=== PATIENT | female | born 1975 | race Caucasian/White ===

== ENCOUNTER → 2017-01-17 | Outpatient (CLI) | payer BC ==
--- NOTE | 2017-01-17 08:44 | US ---
EXAMINATION TYPE: US pelvic complete DATE OF EXAM: 01/17/2017 COMPARISON: Prior pelvic ultrasound July 22, 2015 CLINICAL HISTORY: N92.1 MENOMETRORRHAGIA. Symptoms x 6 months; TECHNIQUE: Transvaginal (TV) as patient 's bladder not full and chose to have TVUS instead of TA US. Date of LMP: 12/27/2016 EXAM MEASUREMENTS: Uterus: 9.9 x 5.7 x 5.3 cm Endometrial Stripe: 0.9 cm Right Ovary: 3.9 x 1.7 x 1.8 cm Left Ovary: 4.3 x 2.0 x 1.9 cm 1. Uterus: Anteverted; multiple Nabothian cysts noted in cervix with largest = 1.5 x 1.5 x 1.0cm; mu ltiple nodular areas in right myometrium with largest discreet oval mass with peripheral color flow = 1.4 x 1.3 x 0.9cm (? uterine fibroid); cystic structure in upper myometrium = 0.6 x 0.4 x 0.5cm 2. Endometrium: thickness is wnl for day 22LMP 3. Right Ovary: multiple small follicles and solitary solid oval area = 1.6 x 1.4 x 1.5cm 4. Left Ovary: multiple small follicles color flow imaging shows vascular patency within the ovaries; there is no evidence for ovarian torsio n. 5. Bilateral Adnexa: wnl 6. Posterior cul-de-sac: small amount of free fluid is present = 3.9 x 3.0 x 0.6cm x 0.523 = 0.4ml (wnl as is <10ml) Uterus is heterogeneous in appearance. Multiple nabothian cysts are seen in the cervix measuring up t o 1.5 cm in size. In the anterior myometrium there is poorly defined heterogeneous hyperechoic area c ould reflect small fibroid. Endometrium measures 9 mm which is within normal limits for secretory pha se of menstrual cycle. Small moderate free fluid is seen in pelvic cul-de-sac. Both ovaries are identified. Small peripheral follicles are noted bilaterally. No suspicious adnexal masses are seen. IMPRESSION: Suspect small intrauterine fibroids. Consider pelvic MRI correlation which is more sensit que to further evaluate.
[2017-01-17 10:13] LABS: Follicle Stimulating Hormone 1.5 mIU/mL; Prolactin 28.3 ng/mL (3.0-18.6)
== END | disposition home or self-care (01) ==
LOC: RADUSWWP 07:02
PROVIDERS: ATTEND Obstetrics & Gynecology
DX: N92.1 Excessive and frequent menstruation with irregular cycle (principal)
CPT/HCPCS: 76830; 82670; 83001; 83002; 84146; 84443

== ENCOUNTER → 2017-03-21 | Outpatient (CLI) | payer BC ==
[2017-03-21 16:32] LABS: Basophils % (A) 1 %; CH 30.3; CHCM 33.3; Eosinophils % (A) 1 %; HCT 40.3 % (34.0-46.0); HDW 2.19; HGB 13.5 gm/dL (11.4-16.0); Luc # (Auto) 0.13; Luc % (Auto) 2; Lymphocytes # (A) 1.1 k/uL (1.0-4.8); Lymphocytes % (A) 18 %; MCH 30.5 pg (25.0-35.0); MCHC 33.4 g/dL (31.0-37.0); MCV 91.5 fL (80.0-100.0); Mean Platelet Volume 7.3; Monocytes # (A) 0.5 k/uL (0-1.0); Monocytes % (A) 8 %; Neutrophils # (A) 4.4 k/uL (1.3-7.7); Neutrophils % (A) 70 %; RBC 4.41 m/uL (3.80-5.40); RDW 12.8 % (11.5-15.5); WBC 6.2 k/uL (3.8-10.6); WBC (Perox) 6.48
== END | disposition home or self-care (01) ==
LOC: LABPAT 15:51
PROVIDERS: ATTEND Obstetrics & Gynecology
DX: Z01.812 Encounter for preprocedural laboratory examination (principal)
CPT/HCPCS: 36415; 85025

== ENCOUNTER 2017-03-23 09:51 | Day surgery (SDC) | payer BC ==
[2017-03-21 14:12] VITALS: BMI 28.4
--- NOTE | 2017-03-23 09:09 | P.HPOB ---
History of Present Illness H&P Date: 03/23/17 Chief Complaint: menorrhagia Maude is a 41-year-old female who has heavy vaginal bleeding. She was bleeding is worsened over the last 8-9 months amended began after a suction D&C for miscarriage approximately 18 months ago her bleeding has gotten significant have her and now she has often 13 days bleeding 9 days off and then returns to bleeding pattern. She's need iron transfusions for same. We did discuss multiple treatment options following an ultrasound that did not reveal any specific pathology she was offered control versus Mirena versus NovaSure she is opted for NovaSure ablation. She is scheduled for D&C with hysteroscopy NovaSure due to same this will also allow us to fully evaluate the lining of uterus and obtain a tissue sample. On physical exam vital signs are stable and afebrile. Heart regular, lungs clear, extremities without pain. Pelvic exam otherwise generally unremarkable. Assessment menorrhagia. Plan D&C with hysteroscopy and NovaSure. Past Medical History Past Medical History: Asthma, Hypertension Additional Past Medical History / Comment(s): seasonal asthma. HTN UNDER CONTROL NO MEDS. IRREGULAR MENSES History of Any Multi-Drug Resistant Organisms: None Reported Past Surgical History: Bariatric Surgery, Breast Surgery, Orthopedic Surgery Additional Past Surgical History / Comment(s): sleeve gastrectomy September 2013. RT BREAST LUMPECTOMY-BENIGN. RT KNEE SX. EGD. RT SHOULDER SX Past Anesthesia/Blood Transfusion Reactions: Motion Sickness, Postoperative Nausea & Vomiting (PONV) Smoking Status: Never smoker - Past Family History Mother Family Medical History: No Reported History Medications and Allergies Home Medications Medication Instructions Recorded Confirmed Type Ferrous Sulfate [Feosol] 325 mg PO TID 07/23/15 03/21/17 History Calcium Carbonate [Calcium] 600 mg PO DAILY 03/21/17 03/21/17 History Cyanocobalamin (Vitamin B-12) 1,000 mcg PO DAILY 03/21/17 03/21/17 History [Vitamin B-12] Allergies Allergy/AdvReac Type Severity Reaction Status Date / Time No Known Allergies Allergy Verified 03/21/17 11:20 Exam Osteopathic Statement: *. No significant issues noted on an osteopathic structural exam other than those noted in the History and Physical/Consult.
[~2017-03-23 09:51] MED LIST: DEXAMETHASONE SOD PHOSPHATE 10 MG/ML 1 ML VIAL IV ONE; LACTATED RINGERS 1,000 ML IV SCH; LIDOCAINE 1% 20 ML VIAL (10MG/ML) FOR IV START INTRADERMA PRN; ONDANSETRON 4 MG/2 ML VIAL IVP ONE; Pre Op ABX Message 1 EACH MISC MISCELLANE ONE; SCOPOLAMINE 1.5MG/72HR PATCH TRANSDERM ONE
[2017-03-23] MEDS ORDERED: KETOROLAC 30 MG/ML 1 ML VIAL ONE (10:33)
[2017-03-23] MEDS ORDERED: fentaNYL (PF) 50 MCG/ML 2 ML AMP ONE (10:33)
[2017-03-23] MEDS ORDERED: PROPOFOL 10 MG/ML 20 ML VIAL IV ONE (10:33)
[2017-03-23] MEDS ORDERED: MIDAZOLAM 2 MG/2 ML VIAL ONE (10:33)
[2017-03-23] MEDS ORDERED: LIDOCAINE 1% INJ 10MG/ML (20 ML MDV) ONE (10:33)
--- NOTE | 2017-03-23 11:04 | P.OP ---
Date of Procedure: 03/23/17 Preoperative Diagnosis: Menorrhagia Postoperative Diagnosis: Same Procedure(s) Performed: D&C with hysteroscopy and NovaSure Anesthesia: AMITA Surgeon: Rishabh Poe Pathology: other (Uterine curettings) Condition: stable Disposition: same day Operative Findings: Pathology pending Description of Procedure: Patient was taken to the operating suite where a general anesthetic was found be adequate. She was prepped and draped in the normal sterile fashion and placed in the dorsal lithotomy position. Initially a weighted speculum was inserted into the vagina and the anterior lip of the cervix was grasped with an Allis clamp. Cervix was then dilated and uterus sounded to 9 cm. Camera was then inserted no gross pathology was noted therefore camera was removed and sharp curettings were obtained. This tissue was collected and placed on Telfa paper. It was then sent to pathology. NovaSure system was then inserted with a length of 4-1/2 with the to have it was tested and passed its patency test. It was then enabled and burned for 1 minute and 59 seconds. At the conclusion of the burn camera was reinserted excellent burn is noted. All instruments were then removed sponge, lap, needle counts were all correct 2. Patient was then taken to the recovery room in stable and satisfactory condition. Plan - Discharge Summary New Discharge Prescriptions: New Ibuprofen [Motrin] 600 mg PO Q6HR PRN #30 tab PRN Reason: Pain No Action Ferrous Sulfate [Feosol] 325 mg PO TID Cyanocobalamin (Vitamin B-12) [Vitamin B-12] 1,000 mcg PO DAILY Calcium Carbonate [Calcium] 600 mg PO DAILY Discharge Medication List Ferrous Sulfate [Feosol] 325 mg PO TID 07/23/15 [History] Calcium Carbonate [Calcium] 600 mg PO DAILY 03/21/17 [History] Cyanocobalamin (Vitamin B-12) [Vitamin B-12] 1,000 mcg PO DAILY 03/21/17 [ History] Ibuprofen [Motrin] 600 mg PO Q6HR PRN #30 tab 03/23/17 [Rx] Follow up Appointment(s)/Referral(s): Rishabh Poe DO [Doctor of Osteopathic Medicine] - 2 Weeks Patient Instructions/Handouts: Scopolamine (Absorbed through the skin) Activity/Diet/Wound Care/Special Instructions: No heavy lifting, limit stairs and driving, and pelvic rest. If any high temperatures, heavy bleeding, or severe pain call my office
[2017-03-23 11:15] VITALS: TEMP 98.5
[2017-03-23] MEDS: HYDROmorphone 1 MG/ML 1 ML SYRINGE IVP PRN ×2 (11:19→11:24)
[2017-03-23 11:23] VITALS: RESP 16
[2017-03-23] MEDS ORDERED: IBUPROFEN 600 MG TAB PO STA (12:19)
[2017-03-23 12:22] VITALS: BP 165/94; PULSE 64
== END 2017-03-23 12:41 | disposition home or self-care (01) ==
LOC: OR 09:51
PROVIDERS: ATTEND Obstetrics & Gynecology
DX: N92.0 Excessive and frequent menstruation with regular cycle (principal); N92.6 Irregular menstruation, unspecified; J45.909 Unspecified asthma, uncomplicated; Z98.84 Bariatric surgery status
CPT/HCPCS: 81025; 88305; 58563; J2250; J1100; J2405; J2001; J3010; J1885; J1170; J2704

== ENCOUNTER 2017-12-07 10:01 | Observation (INO) | payer BC ==
--- NOTE | 2017-12-07 10:30 | ED ---
General Adult HPI - General Chief complaint: Chest Pain Stated complaint: Chest Pain, SOB, Leg Swelling Time Seen by Provider: 12/07/17 10:11 Source: patient, RN notes reviewed, old records reviewed Mode of arrival: wheelchair Limitations: no limitations - History of Present Illness Initial comments: 42-year-old female presents for evaluation of dyspnea and lower extremity swelling. Patient is generally healthy. She has had issues with hypertension during . She states that over the past 3 days she's had a chest heaviness and mild dyspnea. She also noted yesterday that her legs were very swollen. She states that for the past several weeks she has not felt well, she 's been fatigued. She is also had a.m. headaches for the past one week. She denies central chest pain. She did have a sharp pain across her bilateral upper chest several days ago. No current chest pain. Denies nausea vomiting or diarrhea. Denies dysuria. - Related Data Home Medications Medication Instructions Recorded Confirmed Acetaminophen Tab [Tylenol Tab] 650 mg PO Q4H PRN 12/07/17 12/07/17 Allergies Allergy/AdvReac Type Severity Reaction Status Date / Time No Known Allergies Allergy Verified 12/07/17 10:30 Review of Systems ROS Statement: Those systems with pertinent positive or pertinent negative responses have been documented in the HPI. ROS Other: All systems not noted in ROS Statement are negative. Past Medical History Past Medical History: Asthma, Hypertension Additional Past Medical History / Comment(s): seasonal asthma. HTN UNDER CONTROL NO MEDS. IRREGULAR MENSES History of Any Multi-Drug Resistant Organisms: None Reported Past Surgical History: Bariatric Surgery, Breast Surgery, Orthopedic Surgery Additional Past Surgical History / Comment(s): sleeve gastrectomy September 2013. RT BREAST LUMPECTOMY-BENIGN. RT KNEE SX. EGD. RT SHOULDER SX Past Anesthesia/Blood Transfusion Reactions: Motion Sickness, Postoperative Nausea & Vomiting (PONV) Past Psychological History: No Psychological Hx Reported Smoking Status: Never smoker Past Alcohol Use History: Occasional Past Drug Use History: None Reported - Past Family History Mother Family Medical History: No Reported History General Exam Limitations: no limitations General appearance: alert, in no apparent distress Head exam: Present: atraumatic, normocephalic Eye exam: Present: normal appearance, PERRL, EOMI ENT exam: Present: normal exam Neck exam: Present: normal inspection. Absent: tenderness, meningismus Respiratory exam: Present: normal lung sounds bilaterally. Absent: respiratory distress, wheezes, rales Cardiovascular Exam: Present: regular rate, normal rhythm. Absent: JVD GI/Abdominal exam: Present: soft. Absent: distended, tenderness Extremities exam: Present: pedal edema (trace) Neurological exam: Present: alert, oriented X3, CN II-XII intact. Absent: motor sensory deficit Psychiatric exam: Present: normal affect, normal mood Skin exam: Present: warm, dry, intact. Absent: cyanosis, diaphoretic Course Vital Signs 12/07/17 12/07/17 12/07/17 10:03 11:00 12:01 Temperature 97.8 F Pulse Rate 101 H 64 62 Respiratory 18 16 18 Rate Blood Pressure 184/126 175/103 179/108 O2 Sat by Pulse 96 100 99 Oximetry EKG Findings - EKG Comments: EKG Findings:: EKG: Normal sinus rhythm, voltage criteria for LVH, rate 64, OH interval 176, QRS duration 92, QTC [address] segment changes Medical Decision Making - Medical Decision Making 42-year-old female presenting with dyspnea and fatigue as well as lower extremity swelling. Patient's blood pressure is initially elevated at 200/110. Her blood pressure does go as high as 240/130. She has a history of gestational hypertension but no chronic hypertension noted. Workup including CBC, CMP, d-dimer, troponin, BMP, TSH and urinalysis is all within normal limits. Chest x-ray shows no acute process. Head CT obtained for daily headaches is within normal limits, no intracranial hemorrhage or mass effect. On reevaluation, patient's blood pressure continues to be significantly elevated. She will be started on antihypertensive medication. She'll be placed in observation for monitoring of blood pressure and echocardiogram, due to LVH on EKG. Case discussed with Dr. Chacon who will accept admission - Lab Data Result diagrams: 12/07/17 10:15 12/07/17 10:15 Lab Results 12/07/17 12/07/17 12/07/17 Range/Units 10:15 10:15 10:15 WBC 4.8 (3.8-10.6) k/uL RBC 4.96 (3.80-5.40) m/uL Hgb 14.4 (11.4-16.0) gm/dL Hct 43.4 (34.0-46.0) % MCV 87.4 (80.0-100.0) fL MCH 29.1 (25.0-35.0) pg MCHC 33.3 (31.0-37.0) g/dL RDW 13.5 (11.5-15.5) % Plt Count 270 (150-450) k/uL Neutrophils % 67 % Lymphocytes % 21 % Monocytes % 9 % Eosinophils % 2 % Basophils % 0 % Neutrophils # 3.2 (1.3-7.7) k/uL Lymphocytes # 1.0 (1.0-4.8) k/uL Monocytes # 0.4 (0-1.0) k/uL Eosinophils # 0.1 (0-0.7) k/uL Basophils # 0.0 (0-0.2) k/uL PT (9.0-12.0) sec INR (<1.2) APTT (22.0-30.0) sec D-Dimer (<0.60) mg/L FEU Sodium 139 (137-145) mmol/L Potassium 4.4 (3.5-5.1) mmol/L Chloride 103 (98-107) mmol/L Carbon Dioxide 24 (22-30) mmol/L Anion Gap 12 mmol/L BUN 10 (7-17) mg/dL Creatinine 0.74 (0.52-1.04) mg/dL Est GFR (CKD-EPI)AfAm >90 (>60 ml/min/1.73 sqM) Est GFR (CKD-EPI)NonAf >90 (>60 ml/min/1.73 sqM) Glucose 82 (74-99) mg/dL Calcium 9.1 (8.4-10.2) mg/dL Magnesium 1.9 (1.6-2.3) mg/dL Total Bilirubin 0.7 (0.2-1.3) mg/dL AST 27 (14-36) U/L ALT 26 (9-52) U/L Alkaline Phosphatase 70 (38-126) U/L Total Creatine Kinase 77 (30-135) U/L CK-MB (CK-2) 0.6 (0.0-2.4) ng/mL CK-MB (CK-2) Rel Index 0.8 Troponin I <0.012 (0.000-0.034) ng/mL NT-Pro-B Natriuret Pep pg/mL Total Protein 6.6 (6.3-8.2) g/dL Albumin 4.3 (3.5-5.0) g/dL TSH 1.070 (0.465-4.680) mIU/L Urine Color Urine Appearance (Clear) Urine pH (5.0-8.0) Ur Specific [place] (1.001-1.035) Urine Protein (Negative) Urine Glucose (UA) (Negative) Urine Ketones (Negative) Urine Blood (Negative) Urine Nitrite (Negative) Urine Bilirubin (Negative) Urine Urobilinogen (<2.0) mg/dL Ur Leukocyte Esterase (Negative) Urine HCG, Qual (Not Detectd) 12/07/17 12/07/17 12/07/17 Range/Units 10:15 10:15 10:30 WBC (3.8-10.6) k/uL RBC (3.80-5.40) m/uL Hgb (11.4-16.0) gm/dL Hct (34.0-46.0) % MCV (80.0-100.0) fL MCH (25.0-35.0) pg MCHC (31.0-37.0) g/dL RDW (11.5-15.5) % Plt Count (150-450) k/uL Neutrophils % % Lymphocytes % % Monocytes % % Eosinophils % % Basophils % % Neutrophils # (1.3-7.7) k/uL Lymphocytes # (1.0-4.8) k/uL Monocytes # (0-1.0) k/uL Eosinophils # (0-0.7) k/uL Basophils # (0-0.2) k/uL PT 10.3 (9.0-12.0) sec INR 1.1 (<1.2) APTT 23.1 (22.0-30.0) sec D-Dimer 0.22 (<0.60) mg/L FEU Sodium (137-145) mmol/L Potassium (3.5-5.1) mmol/L Chloride (98-107) mmol/L Carbon Dioxide (22-30) mmol/L Anion Gap mmol/L BUN (7-17) mg/dL Creatinine (0.52-1.04) mg/dL Est GFR (CKD-EPI)AfAm (>60 ml/min/1.73 sqM) Est GFR (CKD-EPI)NonAf (>60 ml/min/1.73 sqM) Glucose (74-99) mg/dL Calcium (8.4-10.2) mg/dL Magnesium (1.6-2.3) mg/dL Total Bilirubin (0.2-1.3) mg/dL AST (14-36) U/L ALT (9-52) U/L Alkaline Phosphatase (38-126) U/L Total Creatine Kinase (30-135) U/L CK-MB (CK-2) (0.0-2.4) ng/mL CK-MB (CK-2) Rel Index Troponin I (0.000-0.034) ng/mL NT-Pro-B Natriuret Pep 168 pg/mL Total Protein (6.3-8.2) g/dL Albumin (3.5-5.0) g/dL TSH (0.465-4.680) mIU/L Urine Color Yellow Urine Appearance Clear (Clear) Urine pH 8.0 (5.0-8.0) Ur Specific [place] 1.010 (1.001-1.035) Urine Protein Negative (Negative) Urine Glucose (UA) Negative (Negative) Urine Ketones Negative (Negative) Urine Blood Negative (Negative) Urine Nitrite Negative (Negative) Urine Bilirubin Negative (Negative) Urine Urobilinogen <2.0 (<2.0) mg/dL Ur Leukocyte Esterase Negative (Negative) Urine HCG, Qual (Not Detectd) 12/07/17 Range/Units 10:30 WBC (3.8-10.6) k/uL RBC (3.80-5.40) m/uL Hgb (11.4-16.0) gm/dL Hct (34.0-46.0) % MCV (80.0-100.0) fL MCH (25.0-35.0) pg MCHC (31.0-37.0) g/dL RDW (11.5-15.5) % Plt Count (150-450) k/uL Neutrophils % % Lymphocytes % % Monocytes % % Eosinophils % % Basophils % % Neutrophils # (1.3-7.7) k/uL Lymphocytes # (1.0-4.8) k/uL Monocytes # (0-1.0) k/uL Eosinophils # (0-0.7) k/uL Basophils # (0-0.2) k/uL PT (9.0-12.0) sec INR (<1.2) APTT (22.0-30.0) sec D-Dimer (<0.60) mg/L FEU Sodium (137-145) mmol/L Potassium (3.5-5.1) mmol/L Chloride (98-107) mmol/L Carbon Dioxide (22-30) mmol/L Anion Gap mmol/L BUN (7-17) mg/dL Creatinine (0.52-1.04) mg/dL Est GFR (CKD-EPI)AfAm (>60 ml/min/1.73 sqM) Est GFR (CKD-EPI)NonAf (>60 ml/min/1.73 sqM) Glucose (74-99) mg/dL Calcium (8.4-10.2) mg/dL Magnesium (1.6-2.3) mg/dL Total Bilirubin (0.2-1.3) mg/dL AST (14-36) U/L ALT (9-52) U/L Alkaline Phosphatase (38-126) U/L Total Creatine Kinase (30-135) U/L CK-MB (CK-2) (0.0-2.4) ng/mL CK-MB (CK-2) Rel Index Troponin I (0.000-0.034) ng/mL NT-Pro-B Natriuret Pep pg/mL Total Protein (6.3-8.2) g/dL Albumin (3.5-5.0) g/dL TSH (0.465-4.680) mIU/L Urine Color Urine Appearance (Clear) Urine pH (5.0-8.0) Ur Specific [place] (1.001-1.035) Urine Protein (Negative) Urine Glucose (UA) (Negative) Urine Ketones (Negative) Urine Blood (Negative) Urine Nitrite (Negative) Urine Bilirubin (Negative) Urine Urobilinogen (<2.0) mg/dL Ur Leukocyte Esterase (Negative) Urine HCG, Qual Not Detected (Not Detectd) Disposition Clinical Impression: Hypertension Disposition: ADMITTED IP TO THIS HOSP Condition: Stable Is patient prescribed a controlled substance at d/c from ED?: No Referrals: Wisam Jonas MD [Primary Care Provider] - 1-2 days Decision to Admit Reason: Admit from EC Decision Date: 12/07/17 Decision Time: 12:19
[2017-12-07 10:48] LABS: Appearance,Urine Clear (Clear); Bilirubin,Urine Negative (Negative); Blood,Urine Negative (Negative); Color,Urine Yellow; Glucose,Urine (UA) Negative (Negative); Ketones,Urine Negative (Negative); Leukocyte Esterase,Urine Negative (Negative); Nitrite,Urine Negative (Negative); Protein,Urine Negative (Negative); Urobilinogen,Urine <2.0 mg/dL (<2.0)
[2017-12-07 10:49] LABS: Basophils % (A) 0 %; Eosinophils # (A) 0.1 k/uL (0-0.7); Eosinophils % (A) 2 %; HCT 43.4 % (34.0-46.0); HGB 14.4 gm/dL (11.4-16.0); Lymphocytes % (A) 21 %; MCH 29.1 pg (25.0-35.0); MCHC 33.3 g/dL (31.0-37.0); MCV 87.4 fL (80.0-100.0); Monocytes # (A) 0.4 k/uL (0-1.0); Monocytes % (A) 9 %; Neutrophils # (A) 3.2 k/uL (1.3-7.7); Neutrophils % (A) 67 %; Platelet Count 270 k/uL (150-450); RBC 4.96 m/uL (3.80-5.40); RDW 13.5 % (11.5-15.5); WBC 4.8 k/uL (3.8-10.6)
[2017-12-07 11:03] LABS: D-Dimer 0.22 mg/L FEU (<0.60); INR 1.1 (<1.2); Partial Thromboplastin Time 23.1 sec (22.0-30.0); Prothrombin Time 10.3 sec (9.0-12.0)
[2017-12-07 11:04] LABS: ALT 26 U/L (9-52); AST 27 U/L (14-36); Albumin 4.3 g/dL (3.5-5.0); Alkaline Phosphatase 70 U/L (38-126); Anion Gap 12 mmol/L; Blood Urea Nitrogen 10 mg/dL (7-17); Calcium 9.1 mg/dL (8.4-10.2); Carbon Dioxide 24 mmol/L (22-30); Chloride 103 mmol/L (98-107); Glucose 82 mg/dL (74-99); Magnesium 1.9 mg/dL (1.6-2.3); Potassium 4.4 mmol/L (3.5-5.1); Sodium 139 mmol/L (137-145); Total Bilirubin 0.7 mg/dL (0.2-1.3); Total Protein 6.6 g/dL (6.3-8.2)
[2017-12-07 11:23] LABS: Creatine Kinase 77 U/L (30-135)
--- NOTE | 2017-12-07 11:28 | XR ---
EXAMINATION TYPE: XR chest 2V DATE OF EXAM: 12/07/2017 COMPARISON: 01/04/2015 HISTORY: Chest pain and lower extremity swelling TECHNIQUE: Frontal and lateral views of the chest are obtained. FINDINGS: There is no focal air space opacity, pleural effusion, or pneumothorax seen. The cardiac silhouette size is within normal limits. The osseous structures are intact. Chronic right distal cl avicular postsurgical change or chronic acromioclavicular dislocation are seen. IMPRESSION: No acute cardiopulmonary process.
[2017-12-07 11:36] LABS: Creatine Kinase MB 0.6 ng/mL (0.0-2.4); Troponin I <0.012 ng/mL (0.000-0.034)
--- NOTE | 2017-12-07 11:49 | CT ---
EXAMINATION TYPE: CT brain wo con DATE OF EXAM: 12/07/2017 COMPARISON: NONE INDICATION: Increased blood pressure , bilateral extremity swelling and headache DLP: 1004.30 mGycm, Automated exposure control for dose reduction was used. CONTRAST: None CT of the brain is performed utilizing 3 mm thick sections through the posterior fossa and 3 mm thick sections through the remaining calvarium. Study is performed within 24 hours of arrival to the hosp [facility]. No abnormal hyperdensity is present to suggest an acute intracranial hemorrhage. No mass lesion is evident. No acute infarcts are evident. Ventricles and sulci are appropriate for the patient age. Paranasal sinuses and mastoid air cells within the [id number] are clear. There are likely subcutaneous sebaceous cyst present in the superior frontal scalp. IMPRESSIONS: 1. No acute intracranial process.
[2017-12-07] MEDS ORDERED: amLODIPine 5 MG TAB PO STA (12:14)
[2017-12-07] MEDS ORDERED: ACETAMINOPHEN TAB 325 MG TAB PO PRN (12:15)
[2017-12-07] MEDS ORDERED: ONDANSETRON 4 MG/2 ML VIAL IVP PRN (12:15)
[2017-12-07] MEDS ORDERED: NALOXONE 0.4 MG/ML 1 ML VIAL IV PRN (12:15)
[2017-12-07] MEDS ORDERED: hydrALAZINE HCL 20 MG/ML 1 ML VIAL IVP STA ×2 (12:47→14:36)
--- NOTE | 2017-12-07 16:14 | P.HPIM ---
History of Present Illness 42-year-old pleasant female came in with compensative pedal edema on her chest pain lasted for a few seconds and midsternal area nonradiating and not associated with the deep breathing not associated with food, she says it only lasts a few seconds only minimal in severity. Patient denied any fever chills. Patient says her main concern is bilateral pedal edema patient denied any orthopnea PND does have some shortness of breath associated with this chest pain patient's EKG showed LV hypertrophy changes. Patient is found to have highly elevated blood pressure of 200 systolic because of which patient was admitted to rule out acute clinic syndromes and highly elevated blood pressures. Patient is not hypertensive. Patient had history of depression denied any history of anxiety. When I evaluated the patient patient does not have any significant pedal edema. Review of Systems REVIEW OF SYSTEMS: CONSTITUTIONAL: No fever, no malaise, no fatigue. HEENT: No recent visual problems or hearing problems. Denied any sore throat. CARDIOVASCULAR: No orthopnea, PND, no palpitations, no syncope. PULMONARY: no cough, no hemoptysis. GASTROINTESTINAL: No diarrhea, no nausea, no vomiting, no abdominal pain. Normoactive bowel sounds. NEUROLOGICAL: No headaches, no weakness, no numbness. HEMATOLOGICAL: Denies any bleeding or petechiae. GENITOURINARY: Denies any burning micturition, frequency, or urgency. MUSCULOSKELETAL/RHEUMATOLOGICAL: Denies any joint pain, swelling, or any muscle pain. ENDOCRINE: Denies any polyuria or polydipsia. The rest of the 14-point review of systems is negative. Past Medical History Past Medical History: Asthma, Hypertension Additional Past Medical History / Comment(s): Gestational HTN, seasonal asthma, vitamin D deficiency, past R foot fracture/casted. History of Any Multi-Drug Resistant Organisms: None Reported Past Surgical History: Bariatric Surgery, Breast Surgery, Orthopedic Surgery, Uterine Ablation Additional Past Surgical History / Comment(s): 09/2013 laparoscopic gastric sleeve with hiatal hernia repair, R breast benign lumpectomy, R knee arthroscopy x 2, EGDs, R shoulder cyst removed below clavicle and piece of clavicle removed, hysteroscopy/ablation, D&Cs, spinal barbara for arachnoid cyst, BELKIS. Past Anesthesia/Blood Transfusion Reactions: Motion Sickness, Postoperative Nausea & Vomiting (PONV) Past Psychological History: No Psychological Hx Reported Additional Psychological History / Comment(s): Pt has had post depression. Pt resides with her 3 children. She is from her spouse at this time. She is independent. Smoking Status: Never smoker Past Alcohol Use History: Occasional Past Drug Use History: None Reported - Past Family History Mother History Unknown: Yes Family Medical History: No Reported History Additional Family Medical History / Comment(s): Mother comitted suicide when pt was 5 yrs old. Father Family Medical History: No Reported History Additional Family Medical History / Comment(s): Father is healthy. Medications and Allergies Home Medications Medication Instructions Recorded Confirmed Type Acetaminophen Tab [Tylenol Tab] 650 mg PO Q4H PRN 12/07/17 12/07/17 History Allergies Allergy/AdvReac Type Severity Reaction Status Date / Time No Known Allergies Allergy Verified 12/07/17 10:30 Physical Exam Vitals: Vital Signs Temp Pulse Resp BP Pulse Ox 12/07/17 15:11 88 16 169/96 100 12/07/17 13:22 68 16 172/103 100 12/07/17 12:49 60 18 171/123 99 12/07/17 12:01 62 18 179/108 99 12/07/17 11:00 64 16 175/103 100 12/07/17 10:03 97.8 F 101 H 18 184/126 96 Intake and Output 12/07/17 12/07/17 12/07/17 06:59 14:59 22:59 Other: Weight 81.647 kg PHYSICAL EXAMINATION: GENERAL: The patient is alert and oriented x3, not in any acute distress. Well developed, well nourished. HEENT: Pupils are round and equally reacting to light. EOMI. No scleral icterus. No conjunctival pallor. Normocephalic, atraumatic. No pharyngeal erythema. No thyromegaly. CARDIOVASCULAR: S1 and S2 present. No murmurs, rubs, or gallops. PULMONARY: Chest is clear to auscultation, no wheezing or crackles. ABDOMEN: Soft, nontender, nondistended, normoactive bowel sounds. No palpable organomegaly. MUSCULOSKELETAL: No joint swelling or deformity. EXTREMITIES: No cyanosis, clubbing, or pedal edema. NEUROLOGICAL: Gross neurological examination did not reveal any focal deficits. SKIN: No rashes. Results CBC & Chem 7: 12/07/17 10:15 12/07/17 10:15 Thrombosis Risk Factor Assmnt - Choose All That Apply Any of the Below Risk Factors Present?: Yes Each Factor Represents 1 point: Age 41-60 years, Obesity (BMI >25) Other Risk Factors: No Other congenital or acquired thrombophilia - If yes, enter type in comment: No Thrombosis Risk Factor Assessment Total Risk Factor Score: 2 Thrombosis Risk Factor Assessment Level: Low Risk Assessment and Plan Plan: -Chest pain: Appears to be atypical and noncardiac will rule out acute coronary syndromes. Cardiology was consulted. My suspicion is that the patient's symptomatology is probably secondary to anxiety. Amylase negative chest x-ray did not show any pneumonic process. -Accelerated hypertension. Patient may have hypertension patient does have left ventricular hypertrophy changes. Patient was started on amlodipine which is appropriate but patient is concerned about bilateral pedal edema because of emergency her to hydrochlorothiazide starting tomorrow if she received amlodipine today. Echocardiogram was ordered from ER which I believe is appropriate. -Bilateral pedal edema: Objectively did not appreciate any pitting pedal edema, patient does not have an other signs or symptoms of congestive heart failure I do not believe patient has CHF. 1 history of depression in the past without any history of anxiety
[2017-12-07] MEDS: HYDROCHLOROTHIAZIDE 25 MG TAB PO SCH (16:54)
[2017-12-07] MEDS ORDERED: HYDROcodone/APAP 5-325MG 1 EACH TAB PO STA (19:08)
--- NOTE | 2017-12-07 19:22 | ECHOF ---
Referral Reason:Dyspnea MEASUREMENTS -------- HEIGHT: 172.7 cm WEIGHT: 81.6 kg BP: 172/103 RVIDd: 3.2 cm (< 3.3) IVSd: 1.1 cm (0.6 - 1.1) LVIDd: 4.8 cm (3.9 - 5.3) LVPWd: 1.2 cm (0.6 - 1.1) IVSs: 1.4 cm LVIDs: 3.3 cm LVPWs: 1.5 cm LAESV Index (A-L): 33.22 ml/m Ao Diam: 3.1 cm (2.0 - 3.7) AV Cusp: 2.1 cm (1.5 - 2.6) LA Diam: 2.7 cm (2.7 - 3.8) EPSS: 0.6 cm MV E Jim: 0.95 m/s MV DecT: 186 ms MV A Jim: 1.00 m/s MV E/A Ratio: 0.95 RAP: 5.00 mmHg RVSP: 14.22 mmHg MV EF SLOPE: 107.35 mm/s (70 - 150) MV EXCURSION: 1.49 cm (> 18.000) FINDINGS -------- Sinus rhythm. This was a technically good study. The left ventricular size is normal. There is mild concentric left ventricular hypertrophy. Overa ll left ventricular systolic function is normal with, an EF between 55 - 60 %. The right ventricle is normal in size and function. LA is midly dilated 29-33ml/m2. The right atrium is normal in size. The aortic valve is trileaflet, and appears structurally normal. No aortic stenosis or regurgitation. The mitral valve leaflets are mildly thickened. Mild mitral regurgitation is present. No regurgitation noted Right ventricular systolic pressure is normal at < 35 mmHg. There is no ev idence of pulmonary hypertension. The pulmonic valve was not well visualized. There is no pulmonic regurgitation present. The aortic root is borderline dilated up to 3.6 cm. Normal inferior vena cava with normal inspiratory collapse consistent with estimated right atrial pre ssure of 5 mmHg. There is no pericardial effusion. CONCLUSIONS -------- 1. Sinus rhythm. 2. This was a technically good study. 3. The left ventricular size is normal. 4. There is mild concentric left ventricular hypertrophy. 5. Overall left ventricular systolic function is normal with, an EF between 55 - 60 %. 6. LA is midly dilated 29-33ml/m2. 7. The aortic valve is trileaflet, and appears structurally normal. No aortic stenosis or regurgitati on. 8. The mitral valve leaflets are mildly thickened. 9. Mild mitral regurgitation is present. 10. No regurgitation noted 11. Right ventricular systolic pressure is normal at < 35 mmHg. 12. The pulmonic valve was not well visualized. 13. There is no pulmonic regurgitation present. 14. The aortic root is borderline dilated up to 3.6 cm. 15. There is no pericardial effusion. BPO SPECIALIST: Sarbjit Davis RDCS
[2017-12-08 07:16] LABS: Basophils % (A) 1 %; Eosinophils # (A) 0.1 k/uL (0-0.7); Eosinophils % (A) 2 %; HCT 41.8 % (34.0-46.0); HGB 13.6 gm/dL (11.4-16.0); Lymphocytes # (A) 1.4 k/uL (1.0-4.8); Lymphocytes % (A) 35 %; MCH 28.4 pg (25.0-35.0); MCHC 32.5 g/dL (31.0-37.0); MCV 87.4 fL (80.0-100.0); Mean Platelet Volume 7.2; Monocytes # (A) 0.4 k/uL (0-1.0); Monocytes % (A) 11 %; Neutrophils % (A) 50 %; Platelet Count 244 k/uL (150-450); RBC 4.78 m/uL (3.80-5.40); RDW 13.6 % (11.5-15.5)
[2017-12-08 07:26] LABS: Calcium 9.1 mg/dL (8.4-10.2); Potassium 4.1 mmol/L (3.5-5.1)
[2017-12-08] MEDS ORDERED: HYDROCHLOROTHIAZIDE 50 MG TAB PO SCH (09:00)
[2017-12-08] MEDS ORDERED: amLODIPine 5 MG TAB PO SCH (09:00)
[2017-12-08] MEDS ORDERED: traMADol 50 MG TAB PO PRN (09:28)
[2017-12-08] MEDS ORDERED: IBUPROFEN 800 MG TAB PO STA (09:29)
[2017-12-08] MEDS: HYDROCHLOROTHIAZIDE 25 MG TAB PO SCH (10:18)
[2017-12-08 10:48] VITALS: RESP 16; TEMP 97.1
[2017-12-08 11:54] VITALS: BP 137/99; PULSE 69
--- NOTE | 2017-12-08 17:14 | P.DS ---
Providers Date of admission: 12/07/17 12:15 Attending physician: Saritha Chacon Primary care physician: Pritesh Joel [facility] Course: Patient came in with complaints of elevated blood pressure. Her blood pressures come down patient will be discharged on diuretic therapy. I'm not sure where the patient has essential hypertension and I counseled her regarding the appropriate way of checking the blood pressure at home patient was advised to buy a blood pressure machine check it 3 times a day take it to the primary care physician. Patient has vague chest pain yesterday which is related to her anxiety disorder probably atypical in nature rule out a concurrent syndromes and patient will get a stress test as an outpatient. Echocardiogram done here is essentially within normal limits patient came in with complaints of bilateral pedal edema which I was unable to appreciate anyways patient does not have any heart failure at this time. Patient will follow Dr. Jonas as an outpatient. PHYSICAL EXAMINATION: GENERAL: The patient is alert and oriented x3, not in any acute distress. Well developed, well nourished. HEENT: Pupils are round and equally reacting to light. EOMI. No scleral icterus. No conjunctival pallor. Normocephalic, atraumatic. No pharyngeal erythema. No thyromegaly. CARDIOVASCULAR: S1 and S2 present. No murmurs, rubs, or gallops. PULMONARY: Chest is clear to auscultation, no wheezing or crackles. ABDOMEN: Soft, nontender, nondistended, normoactive bowel sounds. No palpable organomegaly. MUSCULOSKELETAL: No joint swelling or deformity. EXTREMITIES: No cyanosis, clubbing, or pedal edema. NEUROLOGICAL: Gross neurological examination did not reveal any focal deficits. SKIN: No rashes. For further details and hospitalization course and medical problems please refer to my HPI Patient Condition at Discharge: Stable Plan - Discharge Summary Discharge Rx Participant: No New Discharge Prescriptions: New Hydrochlorothiazide [Hydrodiuril] 50 mg PO DAILY #30 tab Continue Acetaminophen Tab [Tylenol] 650 mg PO Q4H PRN PRN Reason: Pain Discharge Medication List Acetaminophen Tab [Tylenol] 650 mg PO Q4H PRN 12/07/17 [History] Hydrochlorothiazide [Hydrodiuril] 50 mg PO DAILY #30 tab 12/08/17 [Rx] Follow up Appointment(s)/Referral(s): Wisam Jonas MD [Primary Care Provider] - 12/15/17 1:10 pm (Monday) Patient Instructions/Handouts: Hypertension (DC) Activity/Diet/Wound Care/Special Instructions: Out pt exercise echo in 1week-bring prescription Monday the at 10:45-MRI department Discharge Disposition: HOME SELF-CARE
== END 2017-12-08 14:12 | disposition home or self-care (01) ==
LOC: EC 10:01 → 6SEL 12:15
PROVIDERS: ADMIT Internal Medicine; ATTEND Internal Medicine
DX: R07.89 Other chest pain (principal); R03.0 Elevated blood-pressure reading, without diagnosis of hypertension; R06.02 Shortness of breath; R06.00 Dyspnea, unspecified; R60.0 Localized edema; M79.89 Other specified soft tissue disorders; R53.83 Other fatigue; R51 Headache; F41.9 Anxiety disorder, unspecified; I51.7 Cardiomegaly; J45.909 Unspecified asthma, uncomplicated; N92.6 Irregular menstruation, unspecified; Z98.84 Bariatric surgery status; E66.9 Obesity, unspecified; Z68.28 Body mass index [BMI] 28.0-28.9, adult; Z81.8 Family history of other mental and behavioral disorders
CPT/HCPCS: 99285; 96374 ×2; 96376 ×2; 36415; 94760; 93005; 93306; 85379; 83880; 80053; 80048; 84443; 82550; 82553; 83735; 84484; 85025 ×2; 85610; 85730; 81003; 81025; 71046; 70450; G0378 ×2; J0360

== ENCOUNTER 2018-06-15 14:02 | Observation (INO) | payer BC, OTHER ==
[2018-06-15] MEDS ORDERED: ASPIRIN 81 MG PO STA (14:49)
[2018-06-15] MEDS ORDERED: NITROGLYCERIN OINT 1 INCH/GM PACKET TOPICAL STA (14:49)
--- NOTE | 2018-06-15 14:56 | ED ---
General Adult HPI - General Chief complaint: Chest Pain Stated complaint: Chest pain/sob Time Seen by Provider: 06/15/18 14:05 Source: patient, RN notes reviewed Mode of arrival: ambulatory Limitations: no limitations - History of Present Illness Initial comments: This is a 43-year-old female who presents to emergency department with chest heaviness in the upper chest which on occasion his radiated to her neck. Patient states she's also finding it more difficult to take breath. Patient states his been ongoing for about a month. Patient states she also notices palpitations at times. Patient states just overall she's been feeling terrible lately and she thinks something is wrong. Patient denies any diaphoretic episodes. Patient states she has not noticed the pain increasing with exertion. Patient denies any swelling to the legs or any calf tenderness. Patient denies any nausea vomiting diarrhea. Patient denies any abdominal pain. Patient denies any lightheadedness dizziness or near syncopal episode. Patient states she's been putting off getting seen because she has no insurance. Patient denies any smoking but she has been treated for the last few months for high blood pressure. Patient states her cholesterol was borderline in the past but hasn't had it checked recently. Patient denies any family history of heart problems. - Related Data Home Medications Medication Instructions Recorded Confirmed Losartan/Hydrochlorothiazide 1 tab PO DAILY 06/15/18 06/15/18 [Hyzaar 100-25 Tablet] Allergies Allergy/AdvReac Type Severity Reaction Status Date / Time No Known Allergies Allergy Verified 06/15/18 14:07 Review of Systems ROS Statement: Those systems with pertinent positive or pertinent negative responses have been documented in the HPI. ROS Other: All systems not noted in ROS Statement are negative. Past Medical History Past Medical History: Asthma, Hypertension Additional Past Medical History / Comment(s): Gestational HTN, seasonal asthma, vitamin D deficiency, past R foot fracture/casted. History of Any Multi-Drug Resistant Organisms: None Reported Past Surgical History: Bariatric Surgery, Breast Surgery, Orthopedic Surgery, Uterine Ablation Additional Past Surgical History / Comment(s): 09/2013 laparoscopic gastric sleeve with hiatal hernia repair, R breast benign lumpectomy, R knee arthroscopy x 2, EGDs, R shoulder cyst removed below clavicle and piece of clavicle removed, hysteroscopy/ablation, D&Cs, spinal barbara for arachnoid cyst, BELKIS. Past Anesthesia/Blood Transfusion Reactions: Motion Sickness, Postoperative Nausea & Vomiting (PONV) Past Psychological History: No Psychological Hx Reported Smoking Status: Never smoker Past Alcohol Use History: Occasional Past Drug Use History: None Reported - Past Family History Mother History Unknown: Yes Family Medical History: No Reported History Additional Family Medical History / Comment(s): Mother comitted suicide when pt was 5 yrs old. Father Family Medical History: No Reported History Additional Family Medical History / Comment(s): Father is healthy. General Exam - General Exam Comments Initial Comments: GENERAL: Patient is well-developed and well-nourished. Patient is nontoxic and well- hydrated and is in mild distress. ENT: Neck is soft and supple. No significant lymphadenopathy is noted. Oropharynx is clear. Moist mucous membranes. Neck has full range of motion without eliciting any pain. EYES: The sclera were anicteric and conjunctiva were pink and moist. Extraocular movements were intact and pupils were equal round and reactive to light. Eyelids were unremarkable. PULMONARY: Unlabored respirations. Good breath sounds bilaterally. No audible rales rhonchi or wheezing was noted. CARDIOVASCULAR: There is a regular rate and rhythm without any murmurs gallops or rubs. Occasional extrasystole ABDOMEN: Soft and nontender with normal bowel sounds. No palpable organomegaly was noted. There is no palpable pulsatile mass. SKIN: Skin is clear with no lesions or rashes and otherwise unremarkable. NEUROLOGIC: Patient is alert and oriented x3. Cranial nerves II through XII are grossly intact. Motor and sensory are also intact. Normal speech, volume and content. Symmetrical smile. MUSCULOSKELETAL: Normal extremities with adequate strength and full range of motion. No lower extremity swelling or edema. No calf tenderness. LYMPHATICS: No significant lymphadenopathy is noted PSYCHIATRIC: Normal psychiatric evaluation. Normal interpersonal interactions appears functionally intact in deals appropriately with others. No signs of depression. No signs of anxiety. Limitations: no limitations Course Vital Signs 06/15/18 06/15/18 06/15/18 14:05 15:07 15:19 Temperature 98.2 F Pulse Rate 68 55 L Pulse Rate [ 62 Bilateral Standing] Respiratory 20 16 Rate Blood Pressure 198/122 181/106 O2 Sat by Pulse 99 Oximetry Medical Decision Making - Medical Decision Making EKG shows sinus bradycardia 50 bpm DC interval is 186 QRS is 90 QT interval 444 QTC is 435. Patient's EKG shows no ST segment elevation or depression or T wave abnormalities are noted. Chest x-ray shows no acute abnormality. Patient continues to have chest pressure and dyspnea when I returned to the room. Patient also is having more PVCs. - Lab Data Result diagrams: 06/15/18 14:49 06/15/18 14:49 Lab Results 06/15/18 06/15/18 06/15/18 Range/Units 14:49 14:49 14:49 WBC 5.7 (3.8-10.6) k/uL RBC 4.55 (3.80-5.40) m/uL Hgb 13.5 (11.4-16.0) gm/dL Hct 41.1 (34.0-46.0) % MCV 90.5 (80.0-100.0) fL MCH 29.6 (25.0-35.0) pg MCHC 32.7 (31.0-37.0) g/dL RDW 13.3 (11.5-15.5) % Plt Count 252 (150-450) k/uL Neutrophils % 72 % Lymphocytes % 16 % Monocytes % 8 % Eosinophils % 1 % Basophils % 0 % Neutrophils # 4.1 (1.3-7.7) k/uL Lymphocytes # 0.9 L (1.0-4.8) k/uL Monocytes # 0.5 (0-1.0) k/uL Eosinophils # 0.1 (0-0.7) k/uL Basophils # 0.0 (0-0.2) k/uL PT (9.0-12.0) sec INR (<1.2) APTT (22.0-30.0) sec Sodium 138 (137-145) mmol/L Potassium 4.0 (3.5-5.1) mmol/L Chloride 103 (98-107) mmol/L Carbon Dioxide 27 (22-30) mmol/L Anion Gap 8 mmol/L BUN 17 (7-17) mg/dL Creatinine 0.81 (0.52-1.04) mg/dL Est GFR (CKD-EPI)AfAm >90 (>60 ml/min/1.73 sqM) Est GFR (CKD-EPI)NonAf 90 (>60 ml/min/1.73 sqM) Glucose 83 (74-99) mg/dL Calcium 9.7 (8.4-10.2) mg/dL Magnesium 1.8 (1.6-2.3) mg/dL Total Bilirubin 0.5 (0.2-1.3) mg/dL AST 21 (14-36) U/L ALT 22 (9-52) U/L Alkaline Phosphatase 65 (38-126) U/L Total Creatine Kinase 65 (30-135) U/L CK-MB (CK-2) 0.5 (0.0-2.4) ng/mL CK-MB (CK-2) Rel Index 0.8 Troponin I <0.012 (0.000-0.034) ng/mL Total Protein 6.8 (6.3-8.2) g/dL Albumin 4.1 (3.5-5.0) g/dL Free T4 0.99 (0.78-2.19) ng/dL Urine Opiates Screen (NotDetected) Ur Oxycodone Screen (NotDetected) Urine Methadone Screen (NotDetected) Ur Propoxyphene Screen (NotDetected) Ur Barbiturates Screen (NotDetected) U Tricyclic Antidepress (NotDetected) Ur Phencyclidine Scrn (NotDetected) Ur Amphetamines Screen (NotDetected) U Methamphetamines Scrn (NotDetected) U Benzodiazepines Scrn (NotDetected) Urine Cocaine Screen (NotDetected) U Marijuana (THC) Screen (NotDetected) 06/15/18 06/15/18 Range/Units 14:49 15:39 WBC (3.8-10.6) k/uL RBC (3.80-5.40) m/uL Hgb (11.4-16.0) gm/dL Hct (34.0-46.0) % MCV (80.0-100.0) fL MCH (25.0-35.0) pg MCHC (31.0-37.0) g/dL RDW (11.5-15.5) % Plt Count (150-450) k/uL Neutrophils % % Lymphocytes % % Monocytes % % Eosinophils % % Basophils % % Neutrophils # (1.3-7.7) k/uL Lymphocytes # (1.0-4.8) k/uL Monocytes # (0-1.0) k/uL Eosinophils # (0-0.7) k/uL Basophils # (0-0.2) k/uL PT 10.4 (9.0-12.0) sec INR 1.0 (<1.2) APTT 23.7 (22.0-30.0) sec Sodium (137-145) mmol/L Potassium (3.5-5.1) mmol/L Chloride (98-107) mmol/L Carbon Dioxide (22-30) mmol/L Anion Gap mmol/L BUN (7-17) mg/dL Creatinine (0.52-1.04) mg/dL Est GFR (CKD-EPI)AfAm (>60 ml/min/1.73 sqM) Est GFR (CKD-EPI)NonAf (>60 ml/min/1.73 sqM) Glucose (74-99) mg/dL Calcium (8.4-10.2) mg/dL Magnesium (1.6-2.3) mg/dL Total Bilirubin (0.2-1.3) mg/dL AST (14-36) U/L ALT (9-52) U/L Alkaline Phosphatase (38-126) U/L Total Creatine Kinase (30-135) U/L CK-MB (CK-2) (0.0-2.4) ng/mL CK-MB (CK-2) Rel Index Troponin I (0.000-0.034) ng/mL Total Protein (6.3-8.2) g/dL Albumin (3.5-5.0) g/dL Free T4 (0.78-2.19) ng/dL Urine Opiates Screen Not Detected (NotDetected) Ur Oxycodone Screen Not Detected (NotDetected) Urine Methadone Screen Not Detected (NotDetected) Ur Propoxyphene Screen Not Detected (NotDetected) Ur Barbiturates Screen Not Detected (NotDetected) U Tricyclic Antidepress Not Detected (NotDetected) Ur Phencyclidine Scrn Not Detected (NotDetected) Ur Amphetamines Screen Not Detected (NotDetected) U Methamphetamines Scrn Not Detected (NotDetected) U Benzodiazepines Scrn Not Detected (NotDetected) Urine Cocaine Screen Not Detected (NotDetected) U Marijuana (THC) Screen Not Detected (NotDetected) Disposition Clinical Impression: Chest pain, PVCs (premature ventricular contractions), Dyspnea, Hypertensive urgency Disposition: ADMITTED IP TO THIS HOSP Referrals: Wisam Jonas MD [Primary Care Provider] - 1-2 days Time of Disposition: 16:34
[2018-06-15] MEDS ORDERED: hydrALAZINE HCL 20 MG/ML 1 ML VIAL IVP STA (14:59)
--- NOTE | 2018-06-15 15:16 | XR ---
EXAMINATION TYPE: XR chest 2V DATE OF EXAM: 06/15/2018 COMPARISON: 12/07/2017 HISTORY: Chest pain TECHNIQUE: Frontal and lateral views of the chest are obtained. FINDINGS: There is no focal air space opacity, pleural effusion, or pneumothorax seen. The cardiac silhouette size is within normal limits. The osseous structures are intact. Minimal multilevel dege nerative changes of the thoracic spine are seen. IMPRESSION: No acute cardiopulmonary process.
[2018-06-15 15:25] LABS: Basophils % (A) 0 %; Eosinophils # (A) 0.1 k/uL (0-0.7); Eosinophils % (A) 1 %; HCT 41.1 % (34.0-46.0); HGB 13.5 gm/dL (11.4-16.0); Lymphocytes # (A) 0.9 k/uL (1.0-4.8); Lymphocytes % (A) 16 %; MCH 29.6 pg (25.0-35.0); MCHC 32.7 g/dL (31.0-37.0); MCV 90.5 fL (80.0-100.0); Mean Platelet Volume 7.3; Monocytes # (A) 0.5 k/uL (0-1.0); Monocytes % (A) 8 %; Neutrophils # (A) 4.1 k/uL (1.3-7.7); Neutrophils % (A) 72 %; Platelet Count 252 k/uL (150-450); RBC 4.55 m/uL (3.80-5.40); RDW 13.3 % (11.5-15.5); WBC 5.7 k/uL (3.8-10.6)
[2018-06-15 15:30] LABS: Partial Thromboplastin Time 23.7 sec (22.0-30.0); Prothrombin Time 10.4 sec (9.0-12.0)
[2018-06-15 15:33] LABS: ALT 22 U/L (9-52); AST 21 U/L (14-36); Albumin 4.1 g/dL (3.5-5.0); Alkaline Phosphatase 65 U/L (38-126); Anion Gap 8 mmol/L; Blood Urea Nitrogen 17 mg/dL (7-17); Calcium 9.7 mg/dL (8.4-10.2); Carbon Dioxide 27 mmol/L (22-30); Chloride 103 mmol/L (98-107); Glucose 83 mg/dL (74-99); Magnesium 1.8 mg/dL (1.6-2.3); Sodium 138 mmol/L (137-145); Total Bilirubin 0.5 mg/dL (0.2-1.3); Total Protein 6.8 g/dL (6.3-8.2)
[2018-06-15 15:39] LABS: Creatine Kinase 65 U/L (30-135)
[2018-06-15 15:49] LABS: T4, Free (Free Thyroxine) 0.99 ng/dL (0.78-2.19)
[2018-06-15 15:53] LABS: Creatine Kinase MB 0.5 ng/mL (0.0-2.4); Troponin I <0.012 ng/mL (0.000-0.034)
[2018-06-15 16:15] LABS: Amphetamine Screen,Urine Not Detected (NotDetected); Barbiturate Screen,Urine Not Detected (NotDetected); Benzodiazepines Screen,Urine Not Detected (NotDetected); Cocaine Screen,Urine Not Detected (NotDetected); Methadone Screen, Urine Not Detected (NotDetected); Opiate Screen,Urine Not Detected (NotDetected); Oxycodone Screen, Urine Not Detected (NotDetected); Phencyclidine Screen,Urine Not Detected (NotDetected); Tricyclic Antidepressant,Urine Not Detected (NotDetected); Urn Cannabinoid Scrn Not Detected (NotDetected)
[2018-06-15] MEDS ORDERED: NITROGLYCERIN SL TABS 0.4 MG TAB SUBLINGUAL PRN (16:36)
[2018-06-15] MEDS ORDERED: LABETALOL SYRINGE 5 MG/ML IVP STA (16:48)
[2018-06-15] MEDS ORDERED: IBUPROFEN 600 MG TAB PO STA (17:12)
[2018-06-15] MEDS ORDERED: LORazepam 2 MG/ML INJ IV STA (17:13)
[2018-06-15] MEDS: NITROGLYCERIN OINT 1 INCH/GM PACKET TOPICAL SCH ×2 (18:05→23:07)
[2018-06-15 19:39] VITALS: RESP 16
[2018-06-15] MEDS: METOPROLOL TARTRATE 25 MG TAB PO SCH (20:05)
[2018-06-15 21:12] LABS: Creatine Kinase 52 U/L (30-135)
[2018-06-15 21:24] LABS: Creatine Kinase MB 0.4 ng/mL (0.0-2.4); Troponin I <0.012 ng/mL (0.000-0.034)
[2018-06-16 03:00] LABS: Cholesterol 152 mg/dL (<200); HDL Cholesterol 91 mg/dL (40-60); LDL Cholesterol,Calculated 54 mg/dL (0-99); Triglycerides 35 mg/dL (<150)
[2018-06-16 03:14] LABS: Creatine Kinase 40 U/L (30-135)
[2018-06-16 03:27] LABS: Creatine Kinase MB 0.2 ng/mL (0.0-2.4); Troponin I <0.012 ng/mL (0.000-0.034)
[2018-06-16] MEDS: NITROGLYCERIN OINT 1 INCH/GM PACKET TOPICAL SCH ×2 (05:47→11:41)
--- NOTE | 2018-06-16 08:34 | CONS ---
CONSULTATION This is a 43-year-old lady with a known history of hypertension who was last hospitalized in November of this year and had an echocardiogram performed which revealed normal systolic function. She sees Dr. Jonas in the outpatient setting and takes losartan hydrochlorothiazide. For the last 2-3 days, she has been feeling very much under weather with nondescript symptoms. She has no clear-cut chest discomfort, but feels weak and tired, has no energy and also had some fleeting discomfort in the chest and occasional palpitations. With these symptoms, she came into the hospital and was found to have accelerated hypertension and she arrived. She also was quite anxious when she came in, but after arrival her blood pressure has settled down nicely. Her initial pressure was 198/122, but this morning is 110/70. She has been initiated on beta hernandez and also received some labetalol as well, but blood pressure control seems to have been optimized. The patient indicates to me that she was quite compliant with her medications. At the time of my evaluation, she is resting comfortably without symptoms. Her troponins are normal. PAST MEDICAL HISTORY: 1. Bronchial asthma which has been under good control. 2. Hypertension for which she takes losartan HCTZ. 3. She is status post some left knee arthroscopic surgery. 4. She has had some lumpectomy in the right breast which was benign. 5. She has no other major medical problems. Specifically, she has no hypertension or diabetes or history of any prior LA. She does not have any family history of abdominal aortic aneurysm. MEDICATIONS: At home include losartan HCTZ 100/25 1 tab daily. ALLERGIES: None. REVIEW OF SYSTEMS: Unremarkable other than above-mentioned facts. PHYSICAL EXAMINATION: Blood pressure is 113/68, pulse rate is 60 per minute, regular. HEENT unremarkable. Fundus was not examined by me. Neck is supple. No JVD. I do not hear a carotid bruit. There is no thyromegaly. Heart exam reveals S1, S2 heard normally without a rub murmur or gallop. Lungs are clear. Abdomen is soft, nontender. Lower extremities reveal normal pulses. No edema. Central nervous system is normal. EKG revealed sinus mechanism with borderline voltage criteria for LVH. IMPRESSION: 1. Accelerated hypertension which may have been precipitated with an element of anxiety, but this has resolved. Blood pressure is well controlled. 2. Atypical chest pain. 3. History of bariatric surgery. RECOMMENDATION: I am recommending that we discontinue losartan HCTZ and place her on a combination of metoprolol tartrate 25 mg in the morning, amlodipine 2.5 mg in the evening. We can increase activity, discontinue nitroglycerin paste, reduce aspirin to 81 mg daily, and patient can be discharged with outpatient stress test to be performed. I discussed my thoughts in detail with the patient. Thank you very much for the consult. HEIDI / MANOJ: [id number] /
[2018-06-16] MEDS: METOPROLOL TARTRATE 25 MG TAB PO SCH (08:43)
[2018-06-16] MEDS ORDERED: ASPIRIN 325 MG TAB PO SCH (09:00)
[2018-06-16 12:07] VITALS: BP 130/85; PULSE 63; TEMP 98
--- NOTE | 2018-06-16 15:58 | P.HPIM ---
History of Present Illness 43-year-old female with history of hypertension on hydrochlorothiazide and DEEDEE inhibitor combination came in with complaints of symptoms of palpitations and the PVCs. Patient has some chest pain pressure-like sensation associated with those palpitations and PVCs symptoms rule out acute medicineand blood pressure was bit elevated when she came in today morning it's well-controlled patient received labetalol. Patient was evaluated cardiology patient and fever chills nausea vomiting. Patient just pain is non-pleuritic in nature not associated with food. Does have history of bronchial asthma under good control, EKG showed sinus rhythm. Cardiology is according beta blockers and follow-up as an outpatient for outpatient stress test. Patient is not a smoker doesn't have any other significant past medical history except for hypertension breast lumpectomy in the past which she later found out to be benign lesion Review of Systems REVIEW OF SYSTEMS: CONSTITUTIONAL: No fever, no malaise, no fatigue. HEENT: No recent visual problems or hearing problems. Denied any sore throat. CARDIOVASCULAR: orthopnea, PND, no palpitations, no syncope. PULMONARY: No shortness of breath, no cough, no hemoptysis. GASTROINTESTINAL: No diarrhea, no nausea, no vomiting, no abdominal pain. Normoactive bowel sounds. NEUROLOGICAL: No headaches, no weakness, no numbness. HEMATOLOGICAL: Denies any bleeding or petechiae. GENITOURINARY: Denies any burning micturition, frequency, or urgency. MUSCULOSKELETAL/RHEUMATOLOGICAL: Denies any joint pain, swelling, or any muscle pain. ENDOCRINE: Denies any polyuria or polydipsia. The rest of the 14-point review of systems is negative. Past Medical History Past Medical History: Asthma, Hypertension Additional Past Medical History / Comment(s): Gestational HTN, seasonal asthma, vitamin D deficiency, past R foot fracture/casted. History of Any Multi-Drug Resistant Organisms: None Reported Past Surgical History: Bariatric Surgery, Breast Surgery, Orthopedic Surgery, Uterine Ablation Additional Past Surgical History / Comment(s): 09/2013 laparoscopic gastric sleeve with hiatal hernia repair, R breast benign lumpectomy, R knee arthroscopy x 2, EGDs, R shoulder cyst removed below clavicle and piece of clavicle removed, hysteroscopy/ novosure uterine ablation, D&Cs, spinal barbara for arachnoid cyst, BELKIS. Past Anesthesia/Blood Transfusion Reactions: Motion Sickness, Postoperative Nausea & Vomiting (PONV) Additional Past Anesthesia/Blood Transfusion Reaction / Comment(s): "has never recieved a blood transfusion" Smoking Status: Never smoker - Past Family History Mother History Unknown: Yes Family Medical History: No Reported History Additional Family Medical History / Comment(s): Mother comitted suicide when pt was 5 yrs old. Father Family Medical History: No Reported History Additional Family Medical History / Comment(s): Father is healthy. Medications and Allergies Home Medications Medication Instructions Recorded Confirmed Type Metoprolol Tartrate 25 mg PO DAILY #30 tab 06/16/18 Rx amLODIPine [Norvasc] 2.5 mg PO DAILY #30 tablet 06/16/18 Rx Allergies Allergy/AdvReac Type Severity Reaction Status Date / Time No Known Allergies Allergy Verified 06/15/18 14:07 Physical Exam Vitals: Vital Signs Temp Pulse Pulse Resp BP BP Pulse Ox 06/16/18 12:00 98.0 F 63 16 130/85 99 06/16/18 08:00 98.4 F 62 16 114/70 100 06/16/18 03:41 97.9 F 53 L 16 113/68 98 06/15/18 23:00 97.4 F L 65 16 102/61 100 06/15/18 19:38 98.5 F 67 16 114/74 99 06/15/18 17:42 98.6 F 92 18 152/80 100 06/15/18 17:28 97.9 F 06/15/18 17:23 84 18 137/96 06/15/18 17:04 98 18 150/99 97 06/15/18 16:50 103 H 18 146/96 06/15/18 16:00 109 H 18 133/82 Intake and Output 06/16/18 06/16/18 06/16/18 06:59 14:59 22:59 Other: # Voids 2 PHYSICAL EXAMINATION: GENERAL: The patient is alert and oriented x3, not in any acute distress. Well developed, well nourished. HEENT: Pupils are round and equally reacting to light. EOMI. No scleral icterus. No conjunctival pallor. Normocephalic, atraumatic. No pharyngeal erythema. No thyromegaly. CARDIOVASCULAR: S1 and S2 present. No murmurs, rubs, or gallops. PULMONARY: Chest is clear to auscultation, no wheezing or crackles. ABDOMEN: Soft, nontender, nondistended, normoactive bowel sounds. No palpable organomegaly. MUSCULOSKELETAL: No joint swelling or deformity. EXTREMITIES: No cyanosis, clubbing, or pedal edema. NEUROLOGICAL: Gross neurological examination did not reveal any focal deficits. SKIN: No rashes. Results CBC & Chem 7: 06/15/18 14:49 06/15/18 14:49 Labs: Abnormal Lab Results - Last 24 Hours (Table) 06/16/18 Range/Units 02:31 HDL Cholesterol 91 H (40-60) mg/dL Thrombosis Risk Factor Assmnt - Choose All That Apply Any of the Below Risk Factors Present?: Yes Each Factor Represents 1 point: Age 41-60 years, Obesity (BMI >25) Thrombosis Risk Factor Assessment Total Risk Factor Score: 2 Thrombosis Risk Factor Assessment Level: Low Risk Assessment and Plan Plan: Chest pain: Atypical and probably secondary to palpitations, patient will let and an outpatient stress test. Rule out a concurrent syndromes evaluate her a cardiology -Palpitations probably PVCs: Patient was started on beta hernandez -Hypertension cardiology is recommending beta hernandez and amlodipine and discontinue hydrochlorothiazide and lisinopril patient was asked to check the blood pressure closely at home take it to Dr. Jonas's office where he can titrate blood pressure medications
== END 2018-06-16 13:09 | disposition home or self-care (01) ==
LOC: EC 14:02 → 1SOBS 16:38
PROVIDERS: ADMIT Hospitalist; ATTEND Hospitalist
DX: R07.89 Other chest pain (principal); R06.00 Dyspnea, unspecified; R06.02 Shortness of breath; I49.3 Ventricular premature depolarization; F41.9 Anxiety disorder, unspecified; I10 Essential (primary) hypertension; I16.0 Hypertensive urgency; J45.909 Unspecified asthma, uncomplicated; Z79.899 Other long term (current) drug therapy; E66.9 Obesity, unspecified; Z68.28 Body mass index [BMI] 28.0-28.9, adult; Z81.8 Family history of other mental and behavioral disorders; Z98.84 Bariatric surgery status
CPT/HCPCS: 96374; 96375; 99285; 36415; 93005; 85379; 84439; 80061; 80053; 82550 ×2; 82553 ×2; 83735; 84484 ×2; 85025; 85610; 85730; 80306; 71046; G0378 ×2; J2060; J0360

== ENCOUNTER → 2020-07-01 | Outpatient (CLI) | payer BC ==
[2020-07-01 12:34] VITALS: BP 146/91; PULSE 80; RESP 18; TEMP 97.4; BMI 33.9
--- NOTE | 2020-07-01 12:56 | P.PN ---
Subjective Progress Note Date: 07/01/20 DATE OF SERVICE: 07/01/2020 CHIEF COMPLAINT: Follow-up sleeve gastrectomy. HISTORY OF PRESENT ILLNESS: Maude Jay now Maude Casiano is a 45-year-old female who is status post sleeve gastrectomy in September 2013. She is 6 years out. She comes in with moderate weight gain. She was down to 160 pounds and now has re-gained over 60 pounds in 6 years. She was 186 pounds when she re-. She has been lost to follow-up. She presents today in consultation for management of her obesity including surgical weight loss options. Her highest weight for her 5-foot 7-3/4-inch frame was 243 pounds. Her ideal body weight is 158 pounds. Her highest weight was 243 pounds, BMI 37.3. Today she comes in weighing 223 pounds from 181 pounds from 4 years ago. She has gained 41 pounds in 4 years. Lifetime weight loss of 20 pounds. Lifetime percent excess weight loss of 24%. PAST MEDICAL HISTORY: 1. Morbid obesity due to excess calories 2. Hypertensive heart disease. 3. Vitamin D deficiency. 4. Hypomagnesemia. 5. Dysfunctional uterine bleeding 6. Anemia. PAST SURGICAL HISTORY: 1. Sleeve gastrectomy. 2. Left knee arthroscopy. 3. Right shoulder arthroscopy. 4. Breast biopsy. 5. Uterine ablation. MEDICATIONS: Home Medications Medication Instructions Recorded Confirmed Olmesartan/Hydrochlorothiazide 1 each PO DAILY 07/01/20 07/22/20 [Olmesartan-Hctz 40-25 mg Tab] ALLERGIES: NONE. SOCIAL HISTORY: Lifelong nontobacco user. FAMILY HISTORY: Significant for gastroesophageal reflux disease and morbid obesity. REVIEW OF SYSTEMS: CONSTITUTIONAL: [place] body weight of 158 pounds. Highest weight 243 pounds. Body mass index reduced from 37.2. GASTROINTESTINAL: No reports of gastroesophageal reflux disease. Has anemia. She reports hair loss. CARDIOVASCULAR: Denies recent heart attack or chest pain. Has hypertensive heart disease. HEENT: Denies troubles with vision or hearing. RESPIRATORY: No reports of obstructive sleep apnea. ENDOCRINE: History of secondary hyperparathyroidism. MUSCULOSKELETAL: Resolved lower back and hip pain. NEURO: No reports of headaches or seizure disorders. PSYCH: History of depression, well controlled. HEMATOLOGIC: No easy bruising and bleeding. SKIN: No skin cancer. No rash. PHYSICAL EXAM: VITAL SIGNS: 5 feet 7-3/4 inches, weight of 223 pounds. Body mass index 33.9 Vital Signs Temp 97.4 F L 07/01/20 12:25 Pulse 80 07/01/20 12:25 Resp 18 07/01/20 12:25 BP 146/91 07/01/20 12:25 Pulse Ox GENERAL: Well-developed female in no acute distress. ABDOMEN: Soft, nontender. MUSCULOSKELETAL: No clubbing, cyanosis or edema. HEENT: No sclerae icterus. Extraocular muscles intact. Moist buccal mucosa. NECK: Supple without lymphadenopathy. CHEST: Unlabored respirations. CARDIOVASCULAR: Regular rhythm and rate. 2+ radial pulses NEURO: No focal or lateralizing signs. Cranial nerves II to XII grossly intact. PSYCH: Appropriate affect. Alert and oriented to person, place, and time. SKIN: Well perfused. Good skin turgor. ASSESSMENT: 1. Morbid obesity due to excess calories 2. Body mass index reduced from 37.2 down to 33.9 3. Iron deficiency anemia. 4. Dietary surveillance and counseling. PLAN: 1. Recommend bariatric labs. 2. Recommend food diary journal 3. Recommend esophogram to evaluate her sleeve gastrectomy 4. Follow up in 3 weeks. Objective - Vital Signs Vital signs: Vital Signs Temp 97.4 F L 07/01/20 12:25 Pulse 80 07/01/20 12:25 Resp 18 07/01/20 12:25 BP 146/91 07/01/20 12:25 Pulse Ox Intake & Output 06/30/20 07/01/20 07/01/20 18:59 06:59 18:59 Weight 101.151 kg - Labs CBC & Chem 7: 07/01/20 13:34 07/01/20 13:34
[2020-07-01 14:18] LABS: HCT 44.4 % (34.0-46.0); HGB 14.5 gm/dL (11.4-16.0); MCH 30.7 pg (25.0-35.0); MCHC 32.7 g/dL (31.0-37.0); MCV 93.7 fL (80.0-100.0); Mean Platelet Volume 7.5; Platelet Count 347 k/uL (150-450); RBC 4.73 m/uL (3.80-5.40); RDW 12.5 % (11.5-15.5); WBC 6.5 k/uL (3.8-10.6)
[2020-07-01 23:42] LABS: INR 0.96 (0.90-1.11); Partial Thromboplastin Time 27.3 sec (23.5-31.0); Prothrombin Time 10.4 sec (9.9-11.9)
[2020-07-02 00:23] LABS: % Iron Saturation 14.35 (12.00-45.00); African American GFR (CKD) 89.5 (60.0-200.0); Albumin 4.7 g/dL (3.80-4.90); Albumin/Globulin Ratio 2.14 (1.60-3.17); Anion Gap 8.9 mmol/L (4.00-12.00); BUN/Creat Ratio 21.11 Ratio (12.00-20.00); Calcium 9.2 mg/dL (8.7-10.3); Carbon Dioxide 29.1 mmol/L (21.6-31.8); Chol/HDL Ratio 1.95; Ferritin 12.4 ng/mL (10.0-291.0); Folate, Serum 12.1 ng/mL; Globulin 2.2 g/dL (1.6-3.3); LDL Cholesterol,Calculated 93.4 mg/dL (0.0-131.0); Magnesium 1.8 mg/dL (1.5-2.4); Non-African American GFR(CKD) 77.2 (60.0-200.0); Phosphorus 3.9 mg/dL (2.4-5.1); Potassium 3.9 mmol/L (3.5-5.5); Total Bilirubin 0.3 mg/dL (0.3-1.2); Total Protein 6.9 g/dL (6.2-8.2); VLDL Calculation 11.6 mg/dL (5.00-40.00)
[2020-07-02 01:03] LABS: Hemoglobin A1C 5.3 % (4.0-6.0)
[2020-07-02 13:56] LABS: Zinc, Serum 68 ug/dL (60-130)
[2020-07-06 06:09] LABS: Vit B1(Thiamine) 69 ug/L (38-122)
[2020-07-06 06:39] LABS: Vitamin A 52 ug/dL (38-106)
[2020-07-06 10:09] LABS: Selenium 131 mcg/L (63-160)
== END | disposition home or self-care (01) ==
LOC: BARWHC3 12:19
PROVIDERS: ATTEND Surgery Plastic and Reconstructive Surgery
DX: E66.01 Morbid (severe) obesity due to excess calories (principal); D50.9 Iron deficiency anemia, unspecified; D50.8 Other iron deficiency anemias; E44.0 Moderate protein-calorie malnutrition; E55.9 Vitamin D deficiency, unspecified; K74.1 Hepatic sclerosis; N19 Unspecified kidney failure; K50.90 Crohn's disease, unspecified, without complications; Z71.3 Dietary counseling and surveillance; Z68.33 Body mass index [BMI] 33.0-33.9, adult
CPT/HCPCS: 80053; 80061; 82306; 82525; 82607; 82728; 82746; 83036; 83540; 83550; 83735; 83970; 84100; 84134; 84255; 84425; 84443; 84590; 84630; 85027; 85610; 85730; 99211

== ENCOUNTER → 2020-07-17 | Outpatient (CLI) | payer BC ==
--- NOTE | 2020-07-17 14:10 | FL ---
EXAMINATION TYPE: FL barium swallow DATE OF EXAM: 07/17/2020 COMPARISON: None HISTORY: Gastric sleeve, weight gain TECHNIQUE: Single contrast technique technique was utilized to evaluate the esophagus. FINDINGS: Esophagus dilates to normal caliber has normal contour to the gastroesophageal junction. Ga stroesophageal junction opens to normal caliber. Note is made of a few small tertiary contractions present during exam compatible with mild presbyesop hagus. No reflux was elicited. Images: Fluoroscopy time: 0.39 minutes Images: 13 IMPRESSION: 1. Mild presbyesophagus.
== END | disposition home or self-care (01) ==
LOC: RADUSWWP 09:44
PROVIDERS: ATTEND Surgery Plastic and Reconstructive Surgery
DX: K22.8 Other specified diseases of esophagus (principal)
CPT/HCPCS: 74220

== ENCOUNTER → 2020-07-22 | Outpatient (CLI) | payer BC ==
[2020-07-22 14:09] VITALS: BP 115/82; PULSE 90; RESP 18; TEMP 98.1; BMI 33.7
--- NOTE | 2020-07-22 14:37 | P.PN ---
Subjective Progress Note Date: 07/22/20 DATE OF SERVICE: 07/22/2020 CHIEF COMPLAINT: Status post sleeve gastrectomy. HISTORY OF PRESENT ILLNESS: Maude Jay now Maude Casiano is a 45-year-old female who is status post sleeve gastrectomy in September 2013. She is 7 years out. She comes in with a food diary journal. She is tearful as she has worsening weight regain following sleeve gastrectomy many years ago. She reports emotional eating and poor food choices. Her highest weight for her 5-foot 7-3/4-inch frame was 243 pounds. Her BMI was 37.3. Her ideal body weight is 158 pounds. Today she comes in weighing 222 pounds from 181 pounds, 4 years ago. She has gained 40 pounds in 4 years. She has maintained a 21-pound weight loss. Percent excess weight loss is 25%. PAST MEDICAL HISTORY: 1. Morbid obesity due to excess calories, BMI 37.3 2. Hypertension. 3. Vitamin D deficiency. 4. Hypomagnesemia. 5. Dysfunctional uterine bleeding and anemia. PAST SURGICAL HISTORY: 1. Sleeve gastrectomy. 2. Left knee arthroscopy. 3. Right shoulder arthroscopy. 4. Breast biopsy. 5. Uterina ablation. MEDICATIONS: Home Medications Medication Instructions Recorded Confirmed Olmesartan/Hydrochlorothiazide 1 each PO DAILY 07/01/20 07/22/20 [Olmesartan-Hctz 40-25 mg Tab] ALLERGIES: NONE. SOCIAL HISTORY: Lifelong nontobacco user. FAMILY HISTORY: Significant for gastroesophageal reflux disease and morbid obesity. REVIEW OF SYSTEMS: CONSTITUTIONAL: [place] body weight of 158 pounds. Highest weight 243 pounds. Body mass index reduced from 37.2. GASTROINTESTINAL: No reports of gastroesophageal reflux disease. Has anemia. CARDIOVASCULAR: She is back on blood pressure medications due to recent weight regain. No chest pain. HEENT: Denies troubles with vision or hearing. RESPIRATORY: No reports of obstructive sleep apnea. ENDOCRINE: History of secondary hyperparathyroidism. No diabetes MUSCULOSKELETAL: Resolved lower back and hip pain. NEURO: No reports of headaches or seizure disorders. PSYCH: History of depression, well controlled. HEMATOLOGIC: No easy bruising and bleeding. SKIN: No active rash. No skin cancer. PHYSICAL EXAM: VITAL SIGNS: 5 feet 7-3/4 inches, weight of 222 pounds. Body mass index 34.0 Vital Signs Temp 98.1 F 07/22/20 14:06 Pulse 90 07/22/20 14:06 Resp 18 07/22/20 14:06 BP 115/82 07/22/20 14:06 Pulse Ox GENERAL: Well-developed female in no acute distress. ABDOMEN: Soft, nontender. No incisional hernia MUSCULOSKELETAL: No clubbing, cyanosis or edema. HEENT: No sclerae icterus. Extraocular muscles intact. Moist buccal mucosa. NECK: Supple without lymphadenopathy. CHEST: Unlabored respirations. Equal bilateral excursions CARDIOVASCULAR: Regular rhythm and rate. 2+ pitting edema NEURO: No focal or lateralizing signs. PSYCH: Appropriate affect. Alert and oriented to person, place, and time. SKIN: Well perfused good skin turgor LABS: Vitamin D is low. STUDIES: Barium swallow independently reviewed demonstrating no evidence of a large incarcerated hiatal hernia. Sleeve reservoir within normal limits. ASSESSMENT: 1. Morbid obesity due to excess calories 2. Body mass index reduced from 37.3 down to 33.8. 3. Weight gain following bariatric procedure 4. Dietary surveillance and counseling. 5. Vitamin D deficiency PLAN: 1. Recommend green tea to improve metabolism. 2. Keep a food diary journal 3. Two week protein diet advised. 4. Recommend vitamin D 5000 units daily. Objective - Vital Signs Vital signs: Vital Signs Temp 98.1 F 07/22/20 14:06 Pulse 90 07/22/20 14:06 Resp 18 07/22/20 14:06 BP 115/82 07/22/20 14:06 Pulse Ox Intake & Output 07/21/20 07/22/20 07/22/20 18:59 06:59 18:59 Weight 100.698 kg
== END | disposition home or self-care (01) ==
LOC: BARWHC3 13:26
PROVIDERS: ATTEND Surgery Plastic and Reconstructive Surgery
DX: E66.01 Morbid (severe) obesity due to excess calories (principal); E55.9 Vitamin D deficiency, unspecified; Z68.37 Body mass index [BMI] 37.0-37.9, adult; Z71.3 Dietary counseling and surveillance; Z79.899 Other long term (current) drug therapy
CPT/HCPCS: 99211

== ENCOUNTER → 2023-10-06 | Outpatient (CLI) | payer BC ==
--- NOTE | 2023-10-06 11:43 | MM ---
Reason for Exam: Hx of breast augmentation, asymptomatic. Last mammogram was performed 1 year(s) and 1 month(s) ago. Patient History: Menarche at age 10. First Full-Term at age 26. Premenopausal. Patient has history of breast feeding. 2020, Bilateral Implants. Maternal grandmother had breast cancer. Maternal aunt had breast cancer. Risk Values: Mila 5 year model risk: 1.1%. NCI Lifetime model risk: 11.1%. Prior Study Comparison: 09/22/2000 Bilateral Diagnostic Mammogram, [facility]. 04/09/2002 Bilateral Diagnostic Mammogram, [facility]. 07/18/2008 Bilateral Diagnostic Mammogram, [facility]. 08/19/2022 Bilateral MG 3D screen mammo imp/cad., [facility]. Tissue Density: The breasts are heterogeneously dense, which may obscure small masses. Findings: Analyzed By CAD. The pattern is symmetrical. Bilateral breast prostheses are present. Scattered benign punctate calcifications are present. No suspicious groups of microcalcifications, spiculated or lobular masses, architectural distortion or other secondary signs of malignancy are mammographically apparent. Overall Assessment: Benign, BI-RAD 2 Management: Screening Mammogram of both breasts in 1 year. A negative mammogram report should not preclude additional follow up of suspicious palpable abnormalities. Patient should continue monthly self breast exam. A clinical breast exam by your physician is recommended on an annual basis and results should be correlated with mammographic findings. Electronically signed and approved by: Monico Wilks D.O. Radiologis
== END | disposition home or self-care (01) ==
LOC: RADMAMWWP 09:19
PROVIDERS: ATTEND Family Medicine
DX: Z12.31 Encounter for screening mammogram for malignant neoplasm of breast (principal); Z80.3 Family history of malignant neoplasm of breast; Z98.82 Breast implant status
CPT/HCPCS: 77063; 77067